=== PATIENT | male | born 1955 | race Caucasian/White ===

== ENCOUNTER 2025-06-14 07:43 | Emergency (ER) | payer MEDICARE, OTHER ==
[2025-06-14] MEDS: Diphtheria,Pertussis(Acell),Tetanus Vaccine 0.5 ML Syringe IM ONE (08:34)
[2025-06-14 09:25] VITALS: BP 132/81; PULSE 70
== END 2025-06-14 09:31 | disposition home or self-care (01) ==
LOC: JD.ED 07:43
DX: S81.812A Laceration without foreign body, left lower leg, initial encounter (principal); S20.211A Contusion of right front wall of thorax, initial encounter; M75.51 Bursitis of right shoulder; R91.1 Solitary pulmonary nodule; Z23 Encounter for immunization; W11.XXXA Fall on and from ladder, initial encounter
CPT/HCPCS: 71250; 71250-26; 90471; 90715; 99283; 99283-25